=== PATIENT | female | born 1975 | race Caucasian/White ===

== ENCOUNTER 2018-06-30 22:24 | Emergency (ER) | payer OTHER ==
[~2018-06-30] VITALS: Ht 167.6 cm; Wt 78.0 kg
[2018-07-01] MEDS ORDERED: ZYNCOF 20-400120 ML PO (03:01)
[2018-07-01] MEDS ORDERED: OSEL75CA PO (03:01)
== END 2018-07-01 02:59 | disposition home or self-care (01) ==
LOC: ER 22:24
DX: J11.1 Influenza due to unidentified influenza virus with other respiratory manifestations (principal)

== ENCOUNTER 2020-01-14 18:49 | Emergency (ER) | payer OTHER ==
[~2020-01-14] VITALS: Ht 172.7 cm; Wt 77.1 kg
[~2020-01-14 18:49] MED LIST: OSEL75CA PO; ZYNCOF 20-400120 ML PO
== END 2020-01-15 00:15 | disposition home or self-care (01) ==
LOC: ER 18:49
DX: E11.65 Type 2 diabetes mellitus with hyperglycemia (principal); R20.0 Anesthesia of skin

== ENCOUNTER 2020-07-08 14:57 | Emergency (ER) | payer OTHER ==
[~2020-07-08] VITALS: Ht 172.7 cm; Wt 77.1 kg
[2020-07-08] MEDS ORDERED: NOVOLOG100 UNIT/1 (15:19)
[2020-07-08] MEDS ORDERED: LEVEMIR FL100 UNIT/1 (15:19)
[2020-07-08] MEDS ORDERED: [UNRECOGNIZED DRUG - OTHER] (15:20)
[2020-07-08] MEDS ORDERED: COZAAR50 MG (15:20)
== END 2020-07-08 17:14 | disposition home or self-care (01) ==
LOC: ER 14:57
DX: L02.31 Cutaneous abscess of buttock (principal)

== ENCOUNTER 2020-08-23 15:22 | Inpatient (IN) | payer OTHER ==
[~2020-08-23] VITALS: Ht 172.7 cm; Wt 77.1 kg
[~2020-08-23 15:22] MED LIST changes: +COZAAR50 MG; +LEVEMIR FL100 UNIT/1; +NOVOLOG100 UNIT/1; +[UNRECOGNIZED DRUG - OTHER]
[2020-08-30] MEDS ORDERED: INTEGRA PLUS C1 EACH PO (07:52)
[2020-08-30] MEDS ORDERED: Lantus 1000 UNITS/10 SUBCUTANEO (07:52)
[2020-08-30] MEDS ORDERED: LOSARTAN POTASS50 MG PO (07:52)
[2020-08-30] MEDS ORDERED: NOVOLOG100 UNIT/1 SUBCUTANEO (07:52)
[2020-08-30] MEDS ORDERED: INTESTINEX680 M1 PO (07:52)
== END 2020-08-30 10:01 | disposition home or self-care (01) | DRG 603 ==
LOC: ER 15:22 → MEDI 08-24 15:18
PROVIDERS: ADMIT Internal Medicine Cardiovascular Disease; ATTEND Internal Medicine Cardiovascular Disease
PROC: 02HV33Z Insertion of Infusion Device into Superior Vena Cava, Percutaneous Approach (ICD-10-PCS; principal; 2020-08-26)
PROC: 3E04329 Introduction of Other Anti-infective into Central Vein, Percutaneous Approach (ICD-10-PCS; 2020-08-26)
DX: L03.112 Cellulitis of left axilla (principal); L02.412 Cutaneous abscess of left axilla; B95.61 Methicillin susceptible Staphylococcus aureus infection as the cause of diseases classified elsewhere; E11.65 Type 2 diabetes mellitus with hyperglycemia; I10 Essential (primary) hypertension; Z79.4 Long term (current) use of insulin

== ENCOUNTER 2023-10-11 21:13 | Emergency (ER) | payer OTHER ==
[~2023-10-11] VITALS: Ht 172.7 cm; Wt 80.7 kg
[~2023-10-11 21:13] MED LIST changes: +INTEGRA PLUS C1 EACH PO; +INTESTINEX680 M1 PO; +LOSARTAN POTASS50 MG PO; +Lantus 1000 UNITS/10 SUBCUTANEO; +NOVOLOG100 UNIT/1 SUBCUTANEO
[2023-10-11] MEDS ORDERED: ZOLOFT50 MG PO (21:55)
[2023-10-11] MEDS ORDERED: FAMOTIDINE/PF 20 MG/2 ML VIAL IV ONE (23:00)
[2023-10-11] MEDS ORDERED: 0.9 % SODIUM CHLORIDE 500 ML IV SCH (23:00)
[2023-10-11] MEDS ORDERED: DICYCLOMINE HCL 10 MG CAPSULE PO ONE (23:00)
[2023-10-11 23:29] LABS: HEMATOCRIT 37.8 % (36.0-45.00); HEMOGLOBIN 12.7 g/dL (12.0-15.00); MEAN CELL VOLUME 81.6 fL (80.00-100.00); MEAN CORPUSCULAR HEMOGLOBIN 27.4 pg (27.00-32.0); MEAN CORPUSCULAR HGB CONC 33.6 g/dl (32.0-36.0); PLATELET COUNT 230 K/uL (150-450); RED BLOOD COUNT 4.63 M/uL (4.00-6.00); RED CELL DISTRIBUTION WIDTH 14.3 % (11.5-14.5)
[2023-10-11 23:31] LABS: URINE APPEARANCE Clear; URINE BILIRRUBIN Negative (NEGATIVE); URINE BLOOD Negative; URINE COLOR Yellow; URINE LEUKOCYTE Negative; URINE NITRATE Negative; URINE PROTEIN Negative (NEGATIVE); URINE UROBILINOGEN 0.2 E.U./dl
[2023-10-11 23:35] LABS: URINE BACTERIA 735.7 uL (0.0-1933); URINE EPITHELIAL CELLS 12.2 uL (0.0-38.8); URINE RBC 13.6 uL (0.0-20.8); URINE WBC 6.9 uL (0.0-23.2)
[2023-10-11 23:50] LABS: URINE GLUCOSE >=1000 MG/DL (NEGATIVE)
[2023-10-11 23:51] LABS: CALCIUM 9.6 mg/dL (8.5-10.1); CREATININE SERUM 0.84 mg/dL (0.55-1.02); GFR 72.06; POTASSIUM 4.08 mEq/L (3.5-5.1)
== END 2023-10-12 01:44 | disposition home or self-care (01) ==
LOC: ER 21:14
PROVIDERS: General Practice
DX: K59.1 Functional diarrhea (principal); R53.81 Other malaise